=== PATIENT | male | born 1955 | race Caucasian/White ===

== ENCOUNTER 2017-02-06 06:04 | Day surgery (SDC) | payer OTHER ==
--- NOTE | ~2017-02-06 | EGD ---
EGD REPORT [facility] [address] [place] [address] NAME: LATONYA KOROMA : 55 STATUS : [place] [facility] PAT#: [id number] AGE: 62 ADM/REG DATE : 02/06/17 MR#: [id number] REPORT SERV DATE: 02/06/17 DICTATED BY: CÉSAR BELTRE DATE: 02/06/17 REPORT STATUS : Draft TRANSCRIBED BY: [facility] DATE: 02/06/17 Endoscopy Center Patient Name: Latonya Koroma Date of : 1955 Attending MD: CÉSAR BELTRE MD Procedure Date No Time: 02/06/2017 Procedure: Colonoscopy Indications: This is the patient's first colonoscopy, Hematochezia Referring MD: JACKIE DYSON Medicines: See the Anesthesia note for documentation of the administered medications Complications: No immediate complications. Procedure: Pre-Anesthesia Assessment: - ASA Grade Assessment: IV - A patient with severe systemic disease that is a constant threat to life. After I obtained informed consent, the scope was passed under direct vision. Throughout the procedure, the patient's blood pressure, pulse, and oxygen saturations were monitored continuously. The [facility] [id number] was introduced through the anus and advanced to the cecum, identified by appendiceal orifice and ileocecal valve. The colonoscopy was performed without difficulty. The patient tolerated the procedure well. The quality of the bowel preparation was adequate. Findings: The perianal and digital rectal examinations were normal. Internal hemorrhoids were found during retroflexion and were small. A sessile polyp was found in the descending colon. The polyp was small in size. The polyp was removed with a cold biopsy forceps. Resection and retrieval were complete. A sessile polyp was found at the hepatic flexure. The polyp was small in size. The polyp was removed with a cold biopsy forceps. Resection and retrieval were complete. A sessile polyp was found in the cecum. The polyp was 8 mm in size. The polyp was removed with a cold snare. Resection and retrieval were complete. Two sessile polyps were found in the descending colon. The polyps were 10 mm in size. These polyps were removed with a hot snare. Resection and retrieval were complete. A sessile polyp was found in the recto-sigmoid colon. The polyp was small in size. The polyp was removed with a cold biopsy forceps. Resection and retrieval were complete. Four sessile polyps were found in the rectum. The polyps were small in size. These polyps were removed with a cold biopsy forceps. Resection EGD REPORT [address] [place]. [address] NAME: LATONYA KOROMA : 55 STATUS : REG [facility] PAT#: [id number] AGE: 62 ADM/REG DATE : 02/06/17 MR#: [id number] REPORT SERV DATE: 02/06/17 DICTATED BY: CÉSAR BELTRE DATE: 02/06/17 REPORT STATUS : Draft TRANSCRIBED BY: [employer] DATE: 02/06/17 and retrieval were complete. Impression: - Internal hemorrhoids. - One small polyp in the descending colon. Resected and retrieved. - One small polyp at the hepatic flexure. Resected and retrieved. - One 8 mm polyp in the cecum. Resected and retrieved. - Two 10 mm polyps in the descending colon. Resected and retrieved. - One small polyp at the recto-sigmoid colon. Resected and retrieved. - Four small polyps in the rectum. Resected and retrieved. Recommendation: - Patient has a contact number available for emergencies. The signs and symptoms of potential delayed complications were discussed with the patient. Return to normal activities tomorrow. Written discharge instructions were provided to the patient. - Regular diet. - Continue present medications. - Repeat colonoscopy for surveillance based on pathology results. - FOR YOUR BIOPSY RESULTS: Please go to [email or web address] and register to receive your results via the portal. Your biopsy results will be posted there in about 7 to 10 days. IF you do not see result in 10 days, call office. - Continue Plavix Procedure Code(s): --- Professional --- 39363, Colonoscopy, flexible, proximal to splenic flexure; with removal of tumor(s), polyp(s), or other lesion(s) by snare technique 26693, 59, Colonoscopy, flexible, proximal to splenic flexure; with biopsy, single or multiple Diagnosis Code(s): --- Professional --- K64.8, Other hemorrhoids K62.1, Rectal polyp D12.7, Benign neoplasm of rectosigmoid junction D12.0, Benign neoplasm of cecum D12.3, Benign neoplasm of transverse colon D12.4, Benign neoplasm of descending colon K92.1, Melena EGD REPORT [facility] [address] [id number] NAME: LATONYA KOROMA : 55 STATUS : REG [facility]#: [id number] AGE: 62 ADM/REG DATE : 02/06/17 MR#: [id number] REPORT SERV DATE: 02/06/17 DICTATED BY: CÉSAR BELTRE DATE: 02/06/17 REPORT STATUS : Draft TRANSCRIBED BY: [employer] DATE: 02/06/17 CPT copyright 2013 [employer]. All rights reserved. The codes documented in this report are preliminary and upon prospecting driller helper review may be revised to meet current compliance requirements. César Beltre MD CÉSAR BELTRE MD 02/06/2017 8:22 AM This report has been signed electronically. Number of Addenda: 0 Note Initiated On: 02/06/2017 7:43 AM Scope Withdrawal Time 0 hours 21 minutes 13 seconds [id number] [id number]
[~2017-02-06 06:04] MED LIST: AMIT50 PO; ASAB PO; BENEFIBER; COREG3 PO; FLOMAX4 PO; HYDROCHLOROT12.5 MG PO; LISINOPRIL40 MG PO; LOPID6 PO; MEDS; MOMUD PO; NASAL ALLERGY SPRAY; NEUR300 PO; NITROQUICK0.4 MG SL; NORV5 PO; OXYCONTIN15 MG PO; PLAVIX PO; REM15 PO; TRILIPIX135 MG PO; VENTOLIN HFA INH; XANAX1 MG PO; ZOCOR40 PO
== END 2017-02-06 23:59 | disposition home health service (06) ==
LOC: DMU 06:04
PROVIDERS: Internal Medicine Gastroenterology
PROC: 0DBN8ZX Excision of Sigmoid Colon, Via Natural or Artificial Opening Endoscopic, Diagnostic (ICD-10-PCS; 2017-02-06)
PROC: 0DBL8ZX Excision of Transverse Colon, Via Natural or Artificial Opening Endoscopic, Diagnostic (ICD-10-PCS; 2017-02-06)
PROC: 0DBM8ZZ Excision of Descending Colon, Via Natural or Artificial Opening Endoscopic (ICD-10-PCS; 2017-02-06)
PROC: 0DBH8ZZ Excision of Cecum, Via Natural or Artificial Opening Endoscopic (ICD-10-PCS; 2017-02-06)
PROC: 0DBM8ZX Excision of Descending Colon, Via Natural or Artificial Opening Endoscopic, Diagnostic (ICD-10-PCS; principal; 2017-02-06 08:00)
PROC: 0DBP8ZX Excision of Rectum, Via Natural or Artificial Opening Endoscopic, Diagnostic (ICD-10-PCS; 2017-02-06 08:00)
DX: D12.4 Benign neoplasm of descending colon (principal); D12.3 Benign neoplasm of transverse colon; K62.1 Rectal polyp; K63.5 Polyp of colon; K64.8 Other hemorrhoids; I10 Essential (primary) hypertension; I25.10 Atherosclerotic heart disease of native coronary artery without angina pectoris; I25.2 Old myocardial infarction; E78.00 Pure hypercholesterolemia, unspecified; F41.9 Anxiety disorder, unspecified; G47.33 Obstructive sleep apnea (adult) (pediatric); F43.10 Post-traumatic stress disorder, unspecified; F32.9 Major depressive disorder, single episode, unspecified; Z88.5 Allergy status to narcotic agent; Z88.8 Allergy status to other drugs, medicaments and biological substances; Z98.890 Other specified postprocedural states
CPT/HCPCS: 88305